=== PATIENT | female | born 2000 | race African-American/Black ===

== ENCOUNTER 2020-02-02 13:05 | Emergency (ER) | payer OTHER ==
[~2020-02-02] VITALS: Ht 165.1 cm; Wt 74.4 kg
[2020-02-02 13:13] VITALS: BP_SYST 127
--- NOTE | 2020-02-02 13:18 | NUR ---
PATIENT RETURNED TO WAITING ROOM PENDING ROOM ASSIGNMENT
[2020-02-02] MEDS ORDERED: NACL 0.9% 1,000 ML IV ONE (13:40)
--- NOTE | 2020-02-02 13:45 | NUR ---
Patient presented to ER C/O vaginal bleeding. Patient A&Ox4, ambulatory to ER, afebrile, skin pink & warm, deniesn N/V/D, denies pain. Patient states she had vaginal bleeding today, LMP in 01/03/2020 with spotting & vaginal discharge 2 weeks ago.
[2020-02-02 14:30] LABS: BILIRUBIN,URINE NEGATIVE (NEGATIVE); BLOOD, URINE NEGATIVE (NEGATIVE); CLARITY/URINE CLEAR (CLEAR); COLOR,URINE YELLOW (YELLOW); GLUCOSE,URINE NEGATIVE (NEGATIVE); KETONES,URINE NEGATIVE (NEGATIVE); LEUKOCYTE ESTERASE ,URINE 1+ (NEGATIVE); NITRITE, URINE NEGATIVE (NEGATIVE); PH,URINE 6.5 (5.0-8.0); PROTEIN URINE NEGATIVE (NEGATIVE)
[2020-02-02 14:51] LABS: BACTERIA,URINE FEW /HPF (None Seen); MUCUS,URINE None Seen /LPF (None Seen); RBC,URINE 0-3 /HPF (0-3); TRICHOMONAS,URINE Few /HPF (None Seen)
--- NOTE | 2020-02-02 15:25 | NUR ---
Pelvic exam performed by DR. ARANDA with [employer] at bedside for entire examination. Patient tolerated procedure WELL. Patient assisted to position of comfort after examination.
--- NOTE | 2020-02-02 15:35 | NUR ---
Medicated per MD orders. IVF infusing with no s/s of infiltration at this time. Will cont to monitor
[2020-02-02] MEDS ORDERED: AZITHROMYCIN 250 MG TABLET PO ONE (17:00)
--- NOTE | 2020-02-02 17:35 | NUR ---
ER Dr. ARANDA at bedside examining patient.
[2020-02-02 17:59] VITALS: BP_SYST 133
--- NOTE | 2020-02-02 18:00 | NUR ---
Patient given written and verbal discharge instructions and verbalizes understanding. ER MD discussed with patient the results and treatment provided. Patient in stable condition. ID arm band removed. IV catheter removed intact and dressing applied, no active bleeding. Rx of FLAGYL given. Patient educated on pain management and to follow up with PMD. Pain Scale 3/10 . Opportunity for questions provided and answered. Medication side effect fact sheet provided.
[2020-02-05 07:25] LABS: CHLAMYDIA TRACHOMATIS NAA Negative (Negative); NEISSERIA GONORRHOEAE NAA Negative (Negative)
== END 2020-02-02 17:59 | disposition home or self-care (01) ==
LOC: SED 13:05
DX: O20.0 Threatened abortion (principal); O20.9 Hemorrhage in early pregnancy, unspecified; A59.01 Trichomonal vulvovaginitis; Z11.3 Encounter for screening for infections with a predominantly sexual mode of transmission; Z3A.01 Less than 8 weeks gestation of pregnancy
CPT/HCPCS: 36415; 81000; 84702; 87086; 87210; 87491; 87591; 99283; Q0144